=== PATIENT | female | born 1985 | race Asian ===

== ENCOUNTER 2020-07-16 03:38 | Outpatient (CLI) | payer OTHER ==
[2020-07-16 04:46] LABS: SARS-CoV-2 NAA Rapid Test Not Detected (NotDetected)
== END 2020-07-16 03:39 | disposition home or self-care (01) ==
LOC: NAV OCC 03:38
PROVIDERS: ATTEND Emergency Medicine
DX: Z53.9 Procedure and treatment not carried out, unspecified reason (principal)
CPT/HCPCS: 0240U

== ENCOUNTER 2021-04-05 03:04 | Outpatient (CLI) | payer BC, OTHER ==
[2021-04-05 03:54] LABS: SARS-CoV-2 NAA Rapid Test Not Detected (NotDetected)
== END 2021-04-05 03:05 | disposition home or self-care (01) ==
LOC: NAV OCC 03:04
PROVIDERS: ATTEND Family Medicine
DX: Z20.822 Contact with and (suspected) exposure to COVID-19 (principal)
CPT/HCPCS: U0002

== ENCOUNTER 2021-05-19 20:51 | Emergency (ER) | payer OTHER | END 2021-05-19 21:39 | disposition home or self-care (01) | LOC: NAV ERS 20:51 | DX: S61.212A Laceration without foreign body of right middle finger without damage to nail, initial encounter (principal); W26.9XXA Contact with unspecified sharp object(s), initial encounter; Y92.238 Other place in hospital as the place of occurrence of the external cause | CPT/HCPCS: 12001 ==